=== PATIENT | male | born 1980 | race African-American/Black ===

== ENCOUNTER 2021-11-14 20:21 | Emergency (ER) | payer SELFPAY ==
[2021-11-14] MEDS ORDERED: Ketorolac Tromethamine 30 MG/ML VIAL ONE (20:52)
[2021-11-14] MEDS ORDERED: Cyclobenzaprine 10 MG TAB ONE (20:53)
[2021-11-14] MEDS ORDERED: predniSONE 20 MG TAB ONE (20:56)
== END 2021-11-14 20:55 | disposition home or self-care (01) ==
LOC: CSHERS 20:21
DX: M62.838 Other muscle spasm (principal); M79.2 Neuralgia and neuritis, unspecified; F17.210 Nicotine dependence, cigarettes, uncomplicated
CPT/HCPCS: 96372; 99283; J1885; J7512